=== PATIENT | male | born 1995 | race Caucasian/White ===

== ENCOUNTER 2018-01-26 05:41 | Emergency (ER) | payer SELFPAY ==
[2018-01-26] VITALS (24 sets, daily range): BP systolic 109–146; BP diastolic 57–100; PULSE 68–118; RESP 10–24; TEMP 37; O2SAT 93–100
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
--- NOTE | 2018-01-26 05:56 | DI.RPTCT_ITS ---
SYMPTOMS/DIAGNOSIS: TRAUMA, FALL DOWN FLIGHT OF STAIRS NONCONTRAST HEAD CT: No intracranial hemorrhage or skull fracture is seen. The ventricles are normal in size. There is opacification of several ethmoid sinuses. The mastoid air cells appear clear. IMPRESSION: No acute abnormality. CT OF THE CERVICAL SPINE: There is no evidence of fracture. The alignment appears normal. No hematoma is seen. There is a small bubble of air adjacent to the upper trachea which could represent a small diverticulum. IMPRESSION: No evidence of an acute fracture. FACIAL CT: There is a large soft tissue laceration on the right side of the lower lip. There is a fracture which is comminuted extending through the right anterior side of the mandible through the alveolar ridge with avulsion of the right lateral mandibular incisor and canine tooth. Right lateral maxillary incisor is scattered and displaced superiorly, anterior to the maxilla. Fracture through the anterior maxilla is seen in the vicinity through the alveolar ridge. There is no temporomandibular dislocation or evidence of orbital fracture. IMPRESSION: Fractures through the right side of the anterior mandible through the alveolar ridge as well as fractures through the right anterior maxilla with severe displacement of the right canine tooth superiorly.
--- NOTE | 2018-01-26 05:56 | DI.RPTCT_ITS ---
SYMPTOM/DIAGNOSIS: TRAUMA, FALL DOWN FLIGHT OF STAIRS CT CHEST, ABDOMEN AND PELVIS: Images were performed from the clavicle through the ischial tuberosities after IV and without oral contrast CHEST CT: The heart and great vessels appear intact. There is no evidence of pneumothorax or pulmonary contusion. No rib or thoracic spine fractures are seen. IMPRESSION: Negative chest CT ABDOMEN AND PELVIC CT: A metallic density is seen adjacent to the lower right posterior ribs. No rib, spine, or pelvic fracture is seen. The liver, spleen, pancreas, kidneys, adrenals and gallbladder are unremarkable. The exam is somewhat limited due to the lack of intra-abdominal fat and lack of oral contrast. There is a suggestion of haziness in the central mesentery at the level of the celiac axis and SMA. No contrast extravasation is visible. The findings could represent injury to a small vascular structure. There is a small amount of fluid in the lower pelvis. The bladder and prostate are unremarkable. The appendix is not well seen. IMPRESSION: Free fluid in the pelvis and within the mesentery. No active extravasation of contrast is seen. No focal bowel abnormality or solid organ injury is identified.
[2018-01-26] MEDS: Lactated Ringers 1,000 ML 200 ML IV (06:10)
--- NOTE | 2018-01-26 06:11 | DI.REPORT_ITS ---
SYMPTOM/DIAGNOSIS: TRAUMA/ FALL DOWN FLIGHT OF STAIRS RIGHT WRIST: There is gauze overlying the wrist. No fracture or dislocation is seen. There is no evidence of foreign body. IMPRESSION: Negative right wrist.
[2018-01-26] MEDS: Ondansetron 4 MG/2 ML VIAL IVP ×2 (06:15→08:59)
[2018-01-26] MEDS: MORPHine 10 MG/ML VIAL 2 MG IVP ×4 (06:15→09:00)
[2018-01-26 06:34] LABS: Abs Immature Grans 0.05 k/cumm (0.0-0.09); Absolute Basophil Count 0.05 k/cumm (0.0-0.2); Absolute Lymphocyte Count 4.44 k/cumm (1.2-3.4); Absolute Monocyte Count 1.02 k/cumm (0.11-0.7); Absolute Neutrophil Count 9.11 k/cumm (1.2-6.7); Basophils % 0.3; Eosinophils % 2.5; HCT 49.8 % (40.0-50.0); HGB 17.4 g/dL (13.5-17.5); Immature Grans % 0.3; Lymphocytes % 29.5; Mean Corp. HGB Concentration 34.9 g/dL (32.0-36.0); Mean Corpuscular Hemoglobin 30.2 pg (27.0-33.0); Mean Corpuscular Volume 86.3 fL (80-95); Mean Platelet Volume 9.8 fL (8.0-11.0); Monocytes % 6.8; Neutrophils % 60.6; Platelet Count 209 x1000/uL (130-400); RBC 5.77 m/cumm (4.50-6.00); RBC Distribution Width 12.7 % (11.8-14.1); White Blood Cell Count 15.04 k/cumm (4.4-10.8)
[2018-01-26 06:35] LABS: Absolute Eosinophil Count 0.38 k/cumm (0.0-0.7)
[2018-01-26 06:45] LABS: ALT 33 U/L (12-78); AST 46 U/L (15-37); Albumin 4.5 g/dL (3.4-5.0); Alkaline Phosphatase 79 U/L (46-116); Anion Gap 15.3 mmol/L (3-11); BUN 9 mg/dL (7-18); Bilirubin, Total 1.3 mg/dL (0.2-1.0); CO2 23.7 mmol/L (21.0-32.0); CREATININE 0.97 mg/dL (0.70-1.30); Calcium 8.7 mg/dL (8.5-10.1); Chloride 104 mmol/L (98-107); ETHANOL BLOOD 200.6 mg/dL (<3); Glucose 103 mg/dL (70-100); Potassium 3.4 mmol/L (3.5-5.1); Sodium 143 mmol/L (136-145); Total Protein 8.3 g/dL (6.4-8.2)
[2018-01-26] MEDS: CLINDAMYCIN 300 MG/50 ML BAG 100 MG IVPB (06:58)
[2018-01-26] MEDS: Normal Saline Flush 10 ML SYR IVP (06:58)
--- NOTE | 2018-01-26 07:46 | DI.VRAD_ITS ---
EXAM: CT Cervical Spine Without Intravenous Contrast CLINICAL HISTORY: 22 years old, male; Pain; Other: Facial trauma/pain; Face pain and jaw pain; Patient HX: Fell down flight of stairs TECHNIQUE: Axial computed tomography images of the cervical spine without intravenous contrast. Coronal and sagittal reformatted images were created and reviewed. COMPARISON: No relevant prior studies available. FINDINGS: Vertebrae: No acute cervical fracture is seen. There is straightening of the normal cervical lordosis. This can be seen in the presence of a cervical collar or may result from muscle spasm or positioning. Discs/spinal canal/neural foramina: There is no significant stenosis or foraminal narrowing through the cervical spine. Soft tissues: There is no significant prevertebral soft tissue swelling. Trachea: There is a small right posterior tracheal diverticulum, image 338 of series 14. Thyroid: Normal appearing thyroid gland. Lung apices: CT imaging through the chest obtained concurrently, to be dictated separately. IMPRESSION: No acute cervical fracture is seen. EXAM: CT Head Without Intravenous Contrast CLINICAL HISTORY: 22 years old, male; Pain; Other: Facial trauma/pain; Face pain and jaw pain; Patient HX: Fell down flight of stairs TECHNIQUE: Axial computed tomography images of the head/brain without intravenous contrast. Coronal and sagittal reformatted images were created and reviewed. COMPARISON: No relevant prior studies available. FINDINGS: Brain: No acute intracranial hemorrhage, mass-effect, midline shift, or extra-axial collection is seen. The brown white matter differentiation appears preserved. Ventricles: The ventricular system and basilar cisterns appear appropriate in size and configuration. Bones/joints: The bony calvarium appears intact. No depressed skull fracture is seen. Soft tissues: No gross scalp contusion is demonstrated. Sinuses: CT imaging through the facial bones obtained concurrently and dictated separately, below. Mastoid air cells: The mastoid air cells appear clear. Auditory system: The middle ear cavities appear clear. IMPRESSION: No acute intracranial hemorrhage or depressed skull fracture. EXAM: CT Maxillofacial Without Intravenous Contrast CLINICAL HISTORY: 22 years old, male; Pain; Other: Facial trauma/pain; Face pain and jaw pain; Patient HX: Fell down flight of stairs TECHNIQUE: Axial computed tomography images of the face without intravenous contrast. Coronal and sagittal reformatted images were created and reviewed. COMPARISON: No relevant prior studies available. FINDINGS: Bones/joints: There is an acute fracture through the anterior body of the right mandible with fracture extension through the mandibular alveolar ridge. There are fractures through the alveolar ridge and acute avulsion of the right lateral mandibular incisor and right mandibular canine tooth, which are both absent. The right lateral maxillary incisor is essentially shattered through its crown and has been driven superiorly into the right maxilla. The right maxillary canine tooth appears grossly intact but has been driven superiorly through the right maxilla and into the overlying soft tissues, as demonstrated by images 166-221 of series 10 and 41-52 of series 12. There are associated fractures through the right maxilla alveolar ridge. Direct inspection of the teeth is recommended to assess for additional broken teeth. There appears to be a small cavity in the lateral crown of the right maxillary 3rd molar. No additional facial fracture is seen. Soft tissues: There is soft tissue gas anterior to the right maxilla in keeping with lacerations. There is a large defect in the right lower lip. There are punctate radiodensities in this region, presumably representing bone fragments or radiodense foreign debris. Direct inspection is recommended.. Orbits: The globes and intraorbital structures appear grossly intact. Sinuses: There is patchy mucoperiosteal thickening throughout the paranasal sinuses but no air-fluid levels. Dental: See above with the bones. IMPRESSION: 1. Acute fracture through the anterior body of the right mandible extending through the alveolar ridge. 2. Acute traumatic avulsion of the right lateral mandibular incisor and right mandibular canine tooth, both of which appear absent. 3. Right lateral maxillary incisor shattered through its crown and driven superiorly into the right maxilla. Right canine tooth grossly intact but driven superiorly through the right maxilla and partially into the overlying soft tissues. Associated fractures through the right maxillary alveolar ridge. 4. Suggestion of a small dental cavity along the lateral crown of the right 3rd maxillary molar. Dictated and Authenticated by: Gerardo Zurita MD. Ordering:ALEJANDRO ROSALES MD
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
--- NOTE | 2018-01-26 08:07 | DI.VRAD_ITS ---
EXAM: XR Right Wrist Complete, 3 or More Views CLINICAL HISTORY: 22 years old, male; Signs and symptoms; Other: Trauma/fall down flight of stairs TECHNIQUE: Frontal, lateral and oblique views of the right wrist. COMPARISON: No relevant prior studies available. FINDINGS: Bones/joints: Three views of the right wrist reveal no acute fracture or dislocation. Soft tissues: There is relatively hyperdense material projecting over the space between the ulna and carpal bones on the PA view. Artifact created by contamination on the cassette is suspected; however, if there is concern for a radiopaque foreign body, repeat imaging would be recommended. IMPRESSION: 1. No acute fracture or dislocation seen at the right wrist. 2. Suspected artifact from cassette contamination. Please see description above if there is clinical concern for a foreign body. Dictated and Authenticated by: Gerardo Zurita MD. Ordering:ALEJANDRO ROSALES MD
--- NOTE | 2018-01-26 08:10 | ED.FU ---
Disposition Clinical Impression: Lip laceration, Mandible open fracture, Dental injury, Alcohol intoxication, Contusion of mesentery Disposition: [facility] Condition: Stable Medical Decision Making - Lab Data Laboratory Tests 01/26/18 01/26/18 06:10 06:10 WBC 15.04 H RBC 5.77 Hgb 17.4 Hct 49.8 MCV 86.3 MCH 30.2 MCHC 34.9 RDW 12.7 Plt Count 209 MPV 9.8 Immature Gran % 0.3 Neutrophils % 60.6 Lymphocytes % 29.5 Monocytes % 6.8 Eosinophils % 2.5 Basophils % 0.3 Absolute Neutrophils 9.11 H Absolute Lymphocytes 4.44 H Absolute Monocytes 1.02 H Absolute Eosinophils 0.38 Absolute Basophils 0.05 Sodium 143 Potassium 3.4 L Chloride 104 Carbon Dioxide 23.7 Anion Gap 15.3 H BUN 9 Creatinine 0.97 Estimated GFR/1.73 m2 >= 60.00 Glucose 103 H Calcium 8.7 Total Bilirubin 1.3 H AST 46 H ALT 33 Alkaline Phosphatase 79 Total Protein 8.3 H Albumin 4.5 Ethyl Alcohol 200.6 - Radiology Data Radiology results: report reviewed, image reviewed CT head: Negative CT cervical spine: Negative CT facial bones: 1. Acute fracture through the anterior body of the right mandible extending to the alveolar ridge. 2. Acute traumatic avulsion of the right lateral mandibular incisor and right mandibular canine tooth, both of which appear absent. 3. Right lateral maxillary incisor shadow through its crown and driven superiorly into the right maxilla. Right canine tooth grossly intact but driven separately to the right maxilla and partially into the overlying soft tissues. Associated fractures of the right maxillary alveolar ridge. Next line 4. Suggestion of a small dental cavity along the lateral count of the right third maxillary molar. CT chest: Negative CT abdomen and pelvis: 1. Small amount of fluid in the pelvis. Fluid also present in the central small bowel mesentery to the left of midline in between the pancreas and stomach. An acute mesenteric contusion suspected. No active extravasation of contrast identified, however close clinical follow-up recommended to exclude persistent bleeding. Underlying injury to the small mesenteric vascular structures suspected. 2. No acute vessel injury seen in the abdomen or pelvis. No free air. 3. No acute fracture seen among the bones of the abdomen and pelvis. Right wrist x-ray: 1. No acute fracture dislocation seen at the right wrist. 2. Suspect artifact from cassette contamination. If concern for radiopaque foreign body, repeat imaging recommended. - Medical Decision Making Please see Dr. Falk's note for initial presentation, exam and plan. Patient is a 22-year-old male who presented after fall down 13 stairs while intoxicated. Patient noted to have facial lacerations around the mouth with CT findings of fracture through the right mandible with avulsion of right lateral mandibular teeth driven superiorly into the right maxilla. CT abdomen noted small amount of fluid in the pelvis raising concern for an acute mesenteric contusion. Per Dr. Falk, pt had no abdominal pain, tenderness or abdominal skin findings. CT chest, CT head, and CT C-spine negative. Right wrist x-ray negative for acute fracture but noted a suspected artifact from cassette and recommended repeat imaging. Prior to my evaluation, his right wrist wound was already irrigated and dressed. Patient's alcohol level 200 and has been intoxicated since arrival. He otherwise has been awake and hemodynamically stable with intact airway. Per Dr. Falk, patient has refused c-collar since arrival and had held placed in the collar due to lack of patient cooperation. Plan per Dr. Falk was for transfer to [facility] for oral surgery/facial plastics repair. 0815 -- Spoke with [facility] transfer center - state they will call trauma but suggest if facial can evaluate as outpatient -I explained that he has facial lacerations, lip laceration, with avulsed teeth and mandible fracture and would need urgent transfer for consideration of OR exploration and washout and repair sooner than later. 0825 --discussed with trauma Dr. Valentin -accepts patient for transfer. Would like patient in c-collar. He was also notified of abdomen CT findings of small amount of fluid in the pelvis possibly consistent with an acute mesenteric contusion. Per Dr. Falk, patient had no abdominal findings or tenderness. On my reassessment of abdomen, patient has mild diffuse tenderness but he remains hemodynamically stable. Dr. Valentin was informed of his diffuse mild abdominal tenderness and will evaluate patient once transferred to the ER. We will continue IV fluids. C-collar placed and patient is tolerating this. Dr. Valentin was also notified of the questionable foreign body on the right wrist x-ray but may have been due to cassette contamination and that his wound was dressed prior to my evaluation and the x-ray recommended repeat imaging. He states they will evaluate this upon patient's arrival. Prior to transfer, pt still c/o abdominal pain and dose of morphine given. No acute change in abdominal exam. Vitals stable. Advised pt and family that mesentery contusion could be causing his pain and that no extravasation of contrast, solid organ or bowel injury noted on CT. Care Signed Out By:: Dr. Falk - Vital Signs Recent Vitals - 8H: Vital Signs - 8 hr 01/26/18 01/26/18 01/26/18 05:47 06:57 06:59 Temperature 98.6 F Pulse 97 H 88 Respiratory 17 18 Rate Blood Pressure 146/100 123/64 Pulse Oximetry 97 100 99 01/26/18 01/26/18 01/26/18 07:00 07:01 07:11 Temperature Pulse 85 Respiratory 12 14 18 Rate Blood Pressure 118/83 Pulse Oximetry 99 99 99 01/26/18 01/26/18 01/26/18 07:20 07:46 07:47 Temperature Pulse 68 Respiratory 20 10 L 10 L Rate Blood Pressure 109/57 Pulse Oximetry 99 98 97 01/26/18 01/26/18 07:50 08:00 Temperature Pulse Respiratory 15 19 Rate Blood Pressure Pulse Oximetry 97 99 - Continuation of Care Continuation of Care Plan: Case endorsed to follow-up on imaging and for plan to transfer to [facility] to trauma.
[2018-01-26] MEDS: Omnipaque 350 MG/ML 50 ML BTL 100 ML IV (08:40)
--- NOTE | 2018-01-26 09:11 | NUR.NOTE ---
Nursing Note: 0855--c/o umbilical area abd pain--Dr Zamudio notified and checked pt---Zofran and mMorphine given
[2018-01-26] MEDS: fentaNYL 100 MCG/2 ML VIAL (09:21)
[2018-01-26 09:26] LABS: Bilirubin Negative (Negative); Blood Negative (Negative); Clarity Clear; Glucose Negative (Negative); Ketones 15 mg/dL (Negative); Leukocyte Esterase Negative (Negative); Nitrite Negative (Negative); Specific Gravity <= 1.005 (1.005-1.025); Urobilinogen 0.2 EU/dL (Up TO 0.2); pH 5.5 (5-8)
[2018-01-26 09:41] LABS: *AMPHETAMINES SCREEN URINE Negative (Negative); *BARBITURATES SCREEN URINE Negative (Negative); *BENZODIAZEPINES SCREEN URINE Negative (Negative); Cannabinoids THC POSITIVE (Negative); Cocaine Screen,Urine Negative (Negative); METHADONE URINE SCREEN Negative (Negative); OPIATES URINE SCREEN POSITIVE (Negative)
[2018-01-26 09:46] LABS: Tricyclic Antidepressants Negative (Negative)
== END 2018-01-26 09:21 | disposition short-term general hospital (02) ==
LOC: ER 03-25 09:57
PROVIDERS: Emergency Medicine; Emergency Provider Physician Assistant; PCP General Practice
DX: S02.601B Fracture of unspecified part of body of right mandible, initial encounter for open fracture (principal); S02.671B Fracture of alveolus of right mandible, initial encounter for open fracture; S02.42XB Fracture of alveolus of maxilla, initial encounter for open fracture; S03.2XXA Dislocation of tooth, initial encounter; S01.511A Laceration without foreign body of lip, initial encounter; S36.892A Contusion of other intra-abdominal organs, initial encounter; S61.511A Laceration without foreign body of right wrist, initial encounter; S01.512A Laceration without foreign body of oral cavity, initial encounter; D72.829 Elevated white blood cell count, unspecified; F10.129 Alcohol abuse with intoxication, unspecified; W10.8XXA Fall (on) (from) other stairs and steps, initial encounter; Y90.7 Blood alcohol level of 200-239 mg/100 ml; R40.2412 Glasgow coma scale score 13-15, at arrival to emergency department
CPT/HCPCS: 36415; 74177; 80053; 80307; 90471; 96361; 96365; 96375; 96376; 99285; 70450; 70486; 71260; 72125; 73110; 80320; 81003; 85025; J2270; J2405; J3010; L0172; Q9967

== ENCOUNTER 2020-01-04 15:01 | Emergency (ER) | payer MEDICAID, SELFPAY ==
[2020-01-04 15:04] VITALS: BP 124/67; PULSE 94; RESP 15; TEMP 37.2; O2SAT 97
--- NOTE | 2020-01-04 15:23 | W.ED.GENAD ---
Discharge Plan Disposition Patient Disposition: HOME Condition: Stable Discharge Details Chief Complaint: Orthopedic Clinical Impression: Crush injury, toe Primary Care Provider: Chris Chiu ED Provider: Chris Valentin Home Meds and New Rx's Prescriptions: No Action No Known Home Meds RF: 0 Discharge Instructions Instructions: Crush Injury (ED) Additional Instructions: Keep the area clean and dry, change antibiotic dressing daily. I do recommend to continue keeping the toenail taped down. You will likely lose the toenail within the next 2 weeks. Rest, elevate, cool compresses every 2 hours for 20 minutes. [id number] Tylenol and/or Motrin as directed for discomfort. Please watch for new or worsening symptoms and return to the ER for any concerns. Discharge Data Discharge Date/Time-TO BE ENTERED AT DEPARTURE: 01/04/20 16:20 Medical Decision Making Presents with a crush injury to his left great toe, no other injury. Tetanus status is up-to-date. Will perform digital block that I can better evaluate the injury, obtain x-ray to rule out bony abnormality, and the area will need to be thoroughly cleaned and flushed. Perform digital block using 6 cc of 1% lidocaine, patient tolerated well. X-ray was obtained and although there is no obvious fracture, there is radiopaque density, likely foreign body. Clinically when his toenail was lifted there was a large amount of dirt and mud between his nailbed and nail. This was thoroughly cleaned and irrigated. No obvious foreign body remains. There is no true injury to the nailbed. Given the nail it at least one third adhered to the nailbed, I do not believe removing the entire nail is necessary. After the area was thoroughly cleaned and irrigated, and antibiotic dressing was applied and the toenail was taped downward to the nailbed. Patient and I discussed treatment plan. He will rest, elevate, cool compresses as tolerated. [id number] Tylenol and/or Motrin. We initially discussed a postop shoe and crutches, he initially declined but then decided that he would take the postop shoe as putting his foot into a shoe was painful. Patient has no additional questions or concerns and is comfortable discharge. Medical Records Medical records reviewed: Yes I reviewed the patient's medical records. Imaging Data Radiologic Study: Attestation: I personally reviewed and interpreted this imaging study as follows: Imaging: X-Ray My impression: No obvious fracture noted. Appears to have foreign bodies present. This was later confirmed with radiology. Clinically this makes perfect sense. HPI General Mode of arrival: ambulatory. Date/Time Provider Initiated Documentation: 01/04/20 15:04. Limitations to Documentation: no limitations. Information obtained by: patient. HPI Narrative: 24-year-old gentleman presents stating that he accidentally dropped a large rock roughly 80 pounds onto his left great toe roughly 1 hour ago while at work. He was wearing boots but they were not steel toed. He reports moderate pain at rest, worse with ambulation. Denies any numbness, tingling, weakness or other injury. He believes that the nail is broken and partially unattached from the nail bed. He denies any laceration but reports that distally there was a piece of loose skin but he is pulled off. Tetanus status is up-to-date Related Data Home Medications Medication Instructions Recorded Confirmed Unknown [No Known Home Meds] 01/04/20 01/04/20 Allergies Allergy/AdvReac Type Severity Reaction Status Date / Time No Known Allergies Allergy Unverified 01/04/20 15:09 General Stated Complaint: Orthopedic TANNER: 4 Review of Systems Constitutional Constitutional: Denies weakness Musculoskeletal Musculoskeletal: Reports arthralgias, Denies numbness and Denies tingling Integumentary/Breasts Skin/Breast: Denies rash Neurologic Neurologic: Denies numbness, Denies tingling and Denies weakness [facility] Social History Smoking/Tobacco Use Status: Current every day Tobacco Type: smokeless tobacco Alcohol Intake: current Alcohol Intake frequency: a few times a week Drug use: Current Sobriety Do you feel safe at home: Yes Do you feel safe in your relationship?: Yes Exam Const General: cooperative, healthy appearing, comfortable and no acute distress Orientation: alert and awake [facility] Head: normal to inspection, normocephalic and atraumatic Mouth: moist mucous membranes Eyes Conjunctivae: conjunctivae normal Neck Neck: normal visual inspection, trachea midline and supple Resp Effort & Inspection: normal respiratory effort and able to speak in complete sentences Cardio Rate: regular rate Rhythm: regular rhythm Skin General skin exam: no rashes or lesions noted Neuro General: patient alert, patient awake, moves all extremities and no focal motor deficits Sensory Exam: no sensory deficits noted Extrem Other: Left great toe with diffuse mild discomfort. The nailbed is partially avulsed from the nail bed along the medial and proximal aspect however is still attached completely along the lateral proximal and the entire lateral nail bed. Neuro, vascular, tendon intact. Distally there is a small area where he pulled away and layer of skin however this is extremely superficial. There is no obvious deformity or laceration. The area is contaminated with mud. Psych Appearance: grossly normal Mental Status: mental status grossly normal Course Vital Signs Vital signs: Vital Signs Temperature 37.2 C 01/04/20 15:04 Pulse 94 H 01/04/20 15:04 Respiratory Rate 15 01/04/20 15:04 Blood Pressure 124/67 01/04/20 15:04 Pulse Oximetry 97 01/04/20 15:04 Temperature 37.2 C 01/04/20 15:04 Temperature Source Temporal Artery Scan 01/04/20 15:04 Pulse 94 H 01/04/20 15:04 Respiratory Rate 15 01/04/20 15:04 Respiratory Effort Non-Labored 01/04/20 15:08 Blood Pressure 124/67 01/04/20 15:04 Blood Pressure Position Sitting 01/04/20 15:04 Pulse Oximetry 97 01/04/20 15:04 Oxygen Delivery Method Room Air 01/04/20 15:04 Oxygen Flow Rate 0 01/04/20 15:04 Pain Level 6 01/04/20 15:04
--- NOTE | 2020-01-04 15:40 | DI.RAD_ITS ---
EXAM: XR FOOT LT COMPLETE CLINICAL HISTORY: Rock fell onto foot. TECHNIQUE: 2D digital imaging was performed. COMPARISON: No exams were available for comparison FINDINGS: BONES: No acute fracture is present. No bony destructive lesion is seen. JOINTS: No dislocation present. SOFT TISSUE: Radiopaque densities are seen in the soft tissues of the great toe which may be associat ed with the nail. Radiopaque foreign bodies cannot be excluded. Please correlate clinically. IMPRESSION: No acute fracture or dislocation. Please see the above discussion for complete details. DATA REPOSITORY: RADIATION DOSE DELIVERED:
== END 2020-01-04 16:20 | disposition home or self-care (01) ==
PROVIDERS: Emergency Provider Physician Assistant; PCP General Practice
DX: S97.112A Crushing injury of left great toe, initial encounter (principal); S90.412A Abrasion, left great toe, initial encounter; W20.8XXA Other cause of strike by thrown, projected or falling object, initial encounter; Y99.0 Civilian activity done for income or pay
CPT/HCPCS: 64450; 99283; 73630

== ENCOUNTER 2021-01-10 07:33 | Outpatient (CLI) | payer OTHER, SELFPAY ==
--- NOTE | 2021-01-10 10:00 | DI.RAD_ITS ---
Exam(s) XR HAND RT COMPLETE EXAM: XR HAND RT COMPLETE CLINICAL HISTORY: follow up. TECHNIQUE: 2D digital imaging was performed. COMPARISON: No priors for comparison FINDINGS: BONES: There are fractures involving the right 4th and 5th metacarpals. There is volar angulation of both fractures. Callus formation has developed about both fractures, however the fracture lines are still well visualized. No bony destructive lesion is seen. JOINTS: No dislocation present. SOFT TISSUE: Normal. IMPRESSION: Healing angulated fracture of the right 4th and 5th metacarpals. If priors become available, an adde ndum will be issued. DATA REPOSITORY: RADIATION DOSE DELIVERED:
== END 2021-01-10 07:34 | disposition home or self-care (01) ==
LOC: DIORS 01-11 07:33
PROVIDERS: PCP General Practice; Visit Provider Physician Assistant Surgical
DX: S62.344D Nondisplaced fracture of base of fourth metacarpal bone, right hand, subsequent encounter for fracture with routine healing (principal); S62.346D Nondisplaced fracture of base of fifth metacarpal bone, right hand, subsequent encounter for fracture with routine healing
CPT/HCPCS: 73130

== ENCOUNTER 2021-03-07 02:02 | Outpatient (CLI) | payer OTHER, SELFPAY ==
[2021-03-07 10:38] LABS: Source Nasal/Nares
[2021-03-07 12:32] LABS: COVID-19 PCR Negative (Negative)
== END 2021-03-07 02:03 | disposition home or self-care (01) ==
LOC: LBO 02:03
PROVIDERS: PCP General Practice; Visit Provider Student in an Organized Health Care Education/Training Program
DX: Z20.822 Contact with and (suspected) exposure to COVID-19 (principal); Z01.818 Encounter for other preprocedural examination
CPT/HCPCS: 87635

== ENCOUNTER 2021-03-08 02:08 | Outpatient (CLI) | payer OTHER, SELFPAY ==
--- NOTE | 2021-03-08 06:30 | DI.RAD_ITS ---
Exam(s) XR HAND RT COMPLETE EXAM: XR HAND RT COMPLETE CLINICAL HISTORY: f/u fracture of R 5th and 4th MC frx,S62.306A,S62.304A. TECHNIQUE: 2D digital imaging was performed. COMPARISON: CR XR HAND RT COMPLETE from 01/10/2021 FINDINGS: Three views of the right hand reveal significant healing at the fracture sites in the 4th and 5th met acarpals, when compared to the 01/10/2021 images. Fracture lines are still faintly visible. There i s an element of volar angulation at the healed 5th metacarpal site. No additional new fractures. No radiopaque foreign body. No osseous lesions. Bone density is normal. IMPRESSION: DATA REPOSITORY: RADIATION DOSE DELIVERED:
== END 2021-03-08 02:28 ==
PROVIDERS: PCP General Practice; Visit Provider Student in an Organized Health Care Education/Training Program
DX: S62.304D Unspecified fracture of fourth metacarpal bone, right hand, subsequent encounter for fracture with routine healing (principal); S62.306D Unspecified fracture of fifth metacarpal bone, right hand, subsequent encounter for fracture with routine healing; X58.XXXD Exposure to other specified factors, subsequent encounter
CPT/HCPCS: 73130

== ENCOUNTER 2021-03-08 08:02 | Day surgery (SDC) | payer OTHER, SELFPAY ==
[2021-03-08] VITALS (8 sets, daily range): BP systolic 85–104; BP diastolic 35–61; PULSE 51–71; RESP 11–16; TEMP 36.5–36.9; O2SAT 94–100; BMI 26.5
[2021-03-08] MEDS: Lactated Ringers 1,000 ML 80 ML IV (09:05)
--- NOTE | 2021-03-08 09:36 | W.ANESPRE ---
General Info Date of Service Date Performed: 03/08/21 Height: 5 ft 10 in Weight: 84 kg Body Mass Index (BMI): 26.5 Surgical Procedure: Operation Date: 03/08/21 11:10 Proposed Procedures Side Surgeon p Open reduction of 5th metacarpal fx malunion,poss orif of 4th metacarpal fx malunion Conrad Cardenas MD Meds Allergies and Home Medications Allergies Allergy/AdvReac Type Severity Reaction Status Date / Time No Known Allergies Allergy Verified 03/08/21 08:37 Home Medication Medication Instructions Recorded acetaminophen 500 mg tablet 500 mg PO TID PRN tab 01/10/21 divalproex 500 mg tablet,delayed 500 mg PO DAILY tab 01/10/21 release hydrocortisone 1 % topical cream 1 applic TOPICAL DAILY PRN g 01/10/21 meloxicam 15 mg tablet 15 mg PO DAILY 01/10/21 mirtazapine 30 mg tablet 30 mg PO DAILY 01/10/21 prazosin 1 mg capsule 1 mg PO QHS 01/10/21 sennosides 8.6 mg capsule 8.6 mg PO DAILY 01/10/21 sertraline 100 mg tablet 100 mg PO DAILY 01/10/21 buprenorphine HCl 4 mg SUBLINGUAL DAILY 03/03/21 valproic acid 250 mg PO DAILY 03/03/21 Current Visit Medications: Current Medications Generic Name Dose Route Start Last Admin Trade Name Drewq PRN Reason Stop Dose Admin Ringer's Solution 1,000 mls @ 80 mls/hr 03/08/21 06:00 03/08/21 09:05 IV 04/06/21 23:59 80 mls/hr INFUSION JADEN Administration Cefazolin Sodium 2,000 mg/ 100 mls @ 200 mls/hr 03/08/21 06:00 Sodium Chloride IV 03/08/21 23:59 PREOP JADEN IV Miscellaneous Supplies 1 each 03/08/21 06:00 Iv Access IV 04/06/21 23:59 DIRECTED JADEN Sodium Chloride 0 ml 03/08/21 06:00 Normal Saline Flush 10 Ml Syr IV 04/06/21 23:59 PRN PRN Sodium Chloride 0 ml 03/08/21 06:00 Normal Saline 10 Ml Vial IJ 04/06/21 23:59 DIRECTED PRN Sterile Water 0 ml 03/08/21 06:00 Water,Injection,Sterile 10 Ml Vial IJ 04/06/21 23:59 DIRECTED PRN PFSH Active Problems Active Problems: Problem Status Onset Code Fracture of fourth metacarpal bone of right hand S62.304A Fracture of fifth metacarpal bone of right hand S62.306A Medical History Medical History (Updated 03/08/21 @ 09:54 by Conrad Cardenas MD) Adjustment disorder Bipolar II disorder Chronic lower back pain Constipation Major depressive disorder Opiate abuse, episodic PTSD (post-traumatic stress disorder) Tobacco Smoking/Tobacco Use Status: Never Alcohol Alcohol Intake: former Substance Use Substance use: Current Sobriety Substance use type: does not use Vital Signs and Lab Results Vital Signs Most Recent Vital Signs in EMR: Most Recent Vital Signs Temp Pulse Resp BP Pulse Ox 36.5 C 51 L 16 103/61 99 03/08/21 08:42 03/08/21 08:42 03/08/21 08:42 03/08/21 08:42 03/08/21 08:42 Lab Results Blood Type / Crossmatch: No Data to Display Complete Blood Count: No Data to Display Complete Metabolic Panel: No Data to Display Liver Function Panel: No Data to Display Coagulation Panel: No Data to Display Cardiac Panel: No Data to Display Arterial Blood Gas: No Data to Display Venous Blood Gas: No Data to Display Pancreas Panel: No Data to Display Thyroid Panel: No Data to Display Infectious Disease: Coronavirus (COVID-19)(PCR) Negative (Negative) 03/07/21 08:44 03/07/21 Coronavirus 2019 Source Nasal/Nares 03/07/21 08:44 03/07/21 Blood Cultures: No Data to Display Toxicology Panel: No Data to Display Anesthesia Assessment and Plan Anesthesia History Personal History: No History of Anesthesia Complications Family History: No Family History of Anesthesia Complications Exercise Tolerance Exercise Tolerance: Metabolic Equivalents>4 Pertinent Negatives Pertinent Negatives: No Symptoms of GERD (Occ s/s with food only, nonetoday) Cardiac & Pulmonary Exam Cardiac Exam: Normal S1/S2 Heart Sounds Pulmonary Exam: Clear Bilateral Breath Sounds Airway Exam Known Difficult Airway: No Mallampati Class: 1 Mouth Opening: Narrow (< 3cm) Thyromental Distance: Greater than 3 cm Neck Range of Motion: Full ROM Neck Circumference: Normal Teeth Condition: Normal Dentition ASA Classification ASA Score: ASA 2 Emergency Case?: No NPO Status NPO Status: NPO Clears >2 hours, Solids >8 hours Anesthesia Plan Resuscitation Status: Full Code Anesthesia Technique: General Anesthesia Airway Planned: LMA Monitors Used: Standard Monitors
--- NOTE | 2021-03-08 09:48 | HPE_ITS ---
Date of service: 03/08/21 Time of Service: 09:48 Assessment and Plan Assessment and plan (1) Fracture of fifth metacarpal bone of right hand: Status: Acute Assessment and plan: Leonid is a 25-year-old who suffered a fracture of his fourth and fifth metacarpals. Unfortunately, the fifth metacarpal is healed in a significantly flexed and slightly rotated position. The malrotation continues to bother him in addition to the prominence of the fifth metacarpal and the palmar prominence of the fifth metacarpal head. I did discussion with Leonid about treatment options. Unfortunately, malunion can only be treated with corrective osteotomy and fixation. I do not think there is any fracture plane still available although we will try to use that fracture plane. The plan will be for an osteotomy of the fifth metacarpal with improvement of the flexion as well as the rotation. This would be held with plates and screws. I discussed the risk of the procedure to include bleeding, infection, pain, stiffness, damage to nerves and vessels, damage to muscle and tendons, continued stiffness, under or overcorrection of the rotation, hardware prominence, hardware failure, need for repeat procedures, malunion, nonunion. Despite these risk, he elects to proceed. Qualifiers: Encounter type: subsequent encounter Fracture type: closed Metacarpal location: neck Fracture alignment: displaced Fracture healing: with malunion Qualified Code(s): S62.336P - Displaced fracture of neck of fifth metacarpal bone, right hand, subsequent encounter for fracture with malunion History of Present Illness History of Present Illness Chief Complaint: Right 5th Metacarpal Malunion Consults Consult date: 03/08/21 Narrative: Leonid is a 25-year-old who suffered a displaced fracture of his right fifth metacarpal. Unfortunately, this healed with a notable flexion deformity with malrotation. He was seen in a delayed fashion in the office where he was diagnosed with this malunion of the fifth metacarpal. Since that offices he continues have discomfort about the right ulnar aspect of the hand. When he goes to make a fist quickly the small finger overlaps the dorsal surface of the ring finger. He denies any numbness or tingling but does report sensitivity if he hits the right hand on anything. He does have a prominence to the right fifth metacarpal. He has had no sick contacts. [facility] He has been tested for COVID-19 and is negative. Review of Systems All systems reviewed & are unremarkable except as noted in HPI and below [facility] Medical History Adjustment disorder Bipolar II disorder Chronic lower back pain Constipation Major depressive disorder Opiate abuse, episodic PTSD (post-traumatic stress disorder) Social History Smoking/Tobacco Use Status: Never Smoking risk assessment performed?: Yes Alcohol Intake: former Drug use: Current Sobriety Substance use type: does not use Current gender identity: male Meds Allergies and Home Medications Allergies Allergy/AdvReac Type Severity Reaction Status Date / Time No Known Allergies Allergy Verified 03/08/21 08:37 Home Medications Medication Instructions Recorded Confirmed Type acetaminophen 500 mg tablet 500 mg PO TID PRN tab 01/10/21 03/03/21 History divalproex 500 mg tablet,delayed 500 mg PO DAILY tab 01/10/21 03/08/21 History release hydrocortisone 1 % topical cream 1 applic TOPICAL DAILY PRN g 01/10/21 03/03/21 History meloxicam 15 mg tablet 15 mg PO DAILY 01/10/21 03/03/21 History mirtazapine 30 mg tablet 30 mg PO DAILY 01/10/21 03/08/21 History prazosin 1 mg capsule 1 mg PO QHS 01/10/21 03/08/21 History sennosides 8.6 mg capsule 8.6 mg PO DAILY 01/10/21 03/08/21 History sertraline 100 mg tablet 100 mg PO DAILY 01/10/21 03/08/21 History buprenorphine HCl 4 mg SUBLINGUAL DAILY 03/03/21 03/08/21 History valproic acid 250 mg PO DAILY 03/03/21 03/08/21 History Exam Narrative Exam Narrative: Sitting up in the hospital stretcher. No acute distress. Alert oriented x3. Resp Auscultation: clear to auscultation bilaterally Cardio Rate: regular rate Rhythm: regular rhythm Extrem Other: Evaluation of the right hand shows multiple old lacerations over the dorsum of the right hand. There is an obvious prominence to the distal aspect of the fifth metacarpal. The metacarpal head of the fifth metacarpal is quite volar. When he goes to make a fist the distal aspect of the small finger overlaps the middle phalanx of the ring finger. I am able to correct out of this position but it does default to that position. He has difficulty making a complete fist with pain in the palm. Results Imaging Imaging Studies: X-ray of the right hand performed today demonstrates a malunion of the fifth metacarpal with flexion of about 50 degrees and some volar translation. The fourth metacarpal has healed with about 15 to 20 degrees of volar angulation. Last Vital Signs Temp 36.5 C 03/08/21 08:42 Pulse 51 L 03/08/21 08:42 Resp 16 03/08/21 08:42 BP 103/61 03/08/21 08:42 Pulse Ox 99 03/08/21 08:42
--- NOTE | 2021-03-08 10:00 | DI.RAD_ITS ---
Exam(s) XR HAND RT LIMITED EXAM: XR HAND RT LIMITED CLINICAL HISTORY: FRACTURE RIGHT 4TH AND 5TH METACARPALS. TECHNIQUE: Fluoroscopy was provided during orthopedic procedure on the 5th metacarpal. CONTRAST MATERIAL: None COMPARISON: CR XR HAND RT COMPLETE from 03/08/2021 FINDINGS: Intraoperative images reveal orthopedic correction of the angulation at the healed 5th metacarpal fra cture site with performance of an osteotomy and placement of dorsal fixation plate across the 5th met acarpal osteotomy site secured by multiple vertical screws. IMPRESSION: As above. Total fluoroscopy time 40 seconds. Cumulative dose 0.2252mGy RADIATION DOSE DELIVERED: justin Corey= mGy
--- NOTE | 2021-03-08 10:07 | PDOC.DSDIS_ITS ---
Documented by User: Kaylie Malik 03/08/21 12:34 Discharge Plan Disposition Patient Disposition: HOME Condition: Good Discharge Details Reason For Visit: Malunion of Right fifth metacarpal fracture Attending Provider: Conrad Cardenas Primary Care Provider: Chris Chiu Home Meds and New Rx's Prescriptions: New acetaminophen 500 mg tablet 1,000 mg PO Q8H PRN (Reason: pain) Qty: 90 RF: 3 ibuprofen 600 mg tablet 600 mg PO TID PRN (Reason: pain) Qty: 90 RF: 3 gabapentin 300 mg capsule 300 mg PO QHS Qty: 14 RF: 0 oxycodone 10 mg tablet 10 mg PO Q4H PRNQty: 30 RF: 0 Continued divalproex 500 mg tablet,delayed release (DR/EC) 500 mg PO DAILY RF: 0 hydrocortisone [Cortisone (hydrocortisone)] 1 % cream 1 applic topical DAILY PRNRF: 0 mirtazapine 30 mg tablet 30 mg PO DAILY RF: 0 sertraline 100 mg tablet 100 mg PO DAILY RF: 0 prazosin 1 mg capsule 1 mg PO QHS RF: 0 senna 8.6 mg capsule 8.6 mg PO DAILY RF: 0 valproic acid 250 mg Capsule 250 mg PO DAILY RF: 0 buprenorphine HCl 2 mg Tablet, Sublingual 4 mg SUBLINGUAL DAILY RF: 0 Discontinued acetaminophen [Acetaminophen Pain Relief] 500 mg tablet 500 mg PO TID PRNRF: 0 meloxicam 15 mg tablet 15 mg PO DAILY RF: 0 Discharge Instructions Additional Instructions: Fifth Metacarpal Fracture Fixation Discharge Instructions Activity: You should keep the hand/wrist elevated as much as possible for the first few days. This is imperative. You may also apply ice. You may use the other fingers as tolerated but avoid trying to do too much too soon. You may perform light activities with the splint in place. Dressing/Cast: Your splint should stay in place at all times. Do NOT get it wet. You may loosen the RITIKA wrap if you feel it is too tight and then re-wrap more loosely. Medications: - You should take Tylenol and Ibuprofen for baseline pain control. - You have been prescribed a stronger pain medication, Oxycodone, for breakthrough pain. - You may apply ice over the wrist/hand, just double bag so it doesn't get wet. Follow-up: 14 days Referrals: Conrad Cardenas MD [ [facility] STAFF PHYSICIAN] - Equipment/Supplies: Splint and Sling Activity:: Elevate Remove Dressings/Wound Care:: Do Not Remove Shower/Bathe:: Cover Diet:: As Tolerated Discharge Orders Discharge Orders: Discharge Order (Routine); Ordered 03/08/21 Ordered By: Kaylie Malik DS: Diagnosis Discharge Diagnosis (1) Fracture of fifth metacarpal bone of right hand: Status: Acute Documented by User: Conrad Cardenas MD 03/08/21 13:07 Discharge Plan Disposition Patient Disposition: HOME Condition: Good Discharge Details Reason For Visit: Malunion of Right fifth metacarpal fracture Attending Provider: Conrad Cardenas Primary Care Provider: Chris Chiu Home Meds and New Rx's Prescriptions: New acetaminophen 500 mg tablet 1,000 mg PO Q8H PRN (Reason: pain) Qty: 90 RF: 3 ibuprofen 600 mg tablet 600 mg PO TID PRN (Reason: pain) Qty: 90 RF: 3 gabapentin 300 mg capsule 300 mg PO QHS Qty: 14 RF: 0 oxycodone 10 mg tablet 10 mg PO Q4H PRNQty: 30 RF: 0 Continued divalproex 500 mg tablet,delayed release (DR/EC) 500 mg PO DAILY RF: 0 hydrocortisone [Cortisone (hydrocortisone)] 1 % cream 1 applic topical DAILY PRNRF: 0 mirtazapine 30 mg tablet 30 mg PO DAILY RF: 0 sertraline 100 mg tablet 100 mg PO DAILY RF: 0 prazosin 1 mg capsule 1 mg PO QHS RF: 0 senna 8.6 mg capsule 8.6 mg PO DAILY RF: 0 valproic acid 250 mg Capsule 250 mg PO DAILY RF: 0 buprenorphine HCl 2 mg Tablet, Sublingual 4 mg SUBLINGUAL DAILY RF: 0 Discontinued acetaminophen [Acetaminophen Pain Relief] 500 mg tablet 500 mg PO TID PRNRF: 0 meloxicam 15 mg tablet 15 mg PO DAILY RF: 0 Discharge Instructions Additional Instructions: Fifth Metacarpal Fracture Fixation Discharge Instructions Activity: You should keep the hand/wrist elevated as much as possible for the first few days. This is imperative. You may also apply ice. You may use the other fingers as tolerated but avoid trying to do too much too soon. You may perform light activities with the splint in place. Dressing/Cast: Your splint should stay in place at all times. Do NOT get it wet. You may loosen the RITIKA wrap if you feel it is too tight and then re-wrap more loosely. Medications: - You should take Tylenol and Ibuprofen for baseline pain control. - You have been prescribed a stronger pain medication, Oxycodone, for breakthrough pain. - You may apply ice over the wrist/hand, just double bag so it doesn't get wet. Follow-up: 14 days Referrals: Conrad Cardenas MD [ [facility] STAFF PHYSICIAN] - Equipment/Supplies: Splint and Sling Activity:: Elevate Remove Dressings/Wound Care:: Do Not Remove Shower/Bathe:: Cover Diet:: As Tolerated Discharge Orders Discharge Orders: Discharge Order (Routine); Ordered 03/08/21 Ordered By: Kaylie Malik
[2021-03-08] MEDS: ceFAZolin 2,000 MG in Normal Saline 100 ML 200 MG IV (10:42)
[2021-03-08] MEDS: Sodium Bicarbonate 50 MEQ/50 ML VIAL (11:41)
[2021-03-08] MEDS: Lidocaine 1% Multi-Dose 50 ML VIAL (11:41)
--- NOTE | 2021-03-08 13:25 | W.ANESPOSTOP ---
Postoperative Evaluation Date, Time and Location Date Performed: 03/08/21 Time Performed: 13:25 Patient Location: Day Surgery Unit Vital Signs Most Recent Imported Vital Signs: Most Recent Vital Signs Temp Pulse Resp BP Pulse Ox 36.6 C 70 14 97/51 L 98 03/08/21 13:17 03/08/21 13:17 03/08/21 13:17 03/08/21 13:17 03/08/21 13:17 Pain Score Most Recent Pain Score: Most Recent Pain Score Pain Level 2 03/08/21 13:17 Assessment Mental Status: Awake (Alert & Oriented to Patient Baseline) Airway and Respiratory Function: Patent airway with normal (patient baseline) respiratory exam Cardiovascular Function: Hemodynamically Stable Hydration Status: Adequately Hydrated Nausea & Vomiting: No Nausea or Vomiting Pain: Pt. Denies Any Pain Peripheral Nerve Block: Patient did not receive a nerve block
--- NOTE | 2021-03-08 17:00 | W.PM.OP ---
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 Unfortunately, his treatment was ultimately delayed and he developed a malunion of the fifth metacarpal with significant flexion as well as some mild rotation deformity. This is bothersome to him when he try to make a fist and was unable to use it fully. Therefore I offered corrective osteotomy with fixation. I reviewed the risk of the procedure to include bleeding, infection, pain, stiffness, damage to nerves and vessels, damage to muscles and tendons, incomplete correction, hardware prominence, hardware failure, malunion, nonunion, need for repeat procedures. Despite these risk, he elects to proceed. Findings: There is a deformity of the right fifth metacarpal neck with palmar translation as well as significant flexion. This fracture was fully healed and while the fracture plane could be identified I was unable to break it free. Therefore, I performed an osteotomy through which I reduce the fracture ensuring appropriate positioning of the distal fragment and that there was no overlap of the fingers and secured this with a 1.5 mm variable angle metacarpal neck plate from [employer]. Procedure Description: Leonid was greeted in the preoperative holding area. His identity was confirmed the correct site was identified and marked. The consent was reviewed with the patient and signed. The history and physical was updated. He was taken back to the operating room and placed in the supine position on the hospital bed. The right arm was placed onto a hand table. A general anesthetic was administered. The right arm was prepped with ChloraPrep and draped in a standard fashion with a nonsterile tourniquet high up on the right arm. Prophylactic antibiotics in the form of cefazolin were administered. A timeout was performed for safe surgery. A longitudinal incision was made over the dorsal ulnar aspect of the right hand slightly curved as it approaches the fifth MCP joint. This dissection was carried down sharply to the skin. Blunt dissection was carried down to the fascia of the dorsal ulnar hand. Soft tissue retraction was performed and there is no crossing branches of the superficial ulnar nerve. This was now incised down to bone. Using Bovie electrocautery the fascia was incised sharply down to bone and a weeks elevator was utilized to elevate the periosteum and the soft tissues from the dorsal aspect of the fifth metacarpal. We had started the case without a tourniquet. However, there is significant ooze coming from the periosteum and the surrounding tissues and therefore I decided to elevate the tourniquet at this time after exsanguinating the arm with an Esmarch. The tourniquet was inflated to 275 mmHg stay for 55 minutes until the splint was on. The previous fracture was identified. There was notable palmar translation of the fracture with a step-off dorsally. The very dorsal aspect of the fracture could be identified with an osteotome. However, is unable to recreate the remainder of the deformity. Therefore, I proceeded with an osteotomy. With retractors medially and laterally, I used a small oscillating saw to make a cut perpendicular to the shaft of the fifth metacarpal. A secondary cut was then made at an angle for closing wedge osteotomy. This was noted to be complete as the distal fragment was mobile. I then reduced the distal fragment out of its palmar translation and out of its flexion and secured it with a K wire. Fluoroscopy showed that we had remove the flexion deformity of the fifth metacarpal. There is also some mild rotatory deformity of the finger. This was really challenging to appreciate in person during the surgery. From multiple viewpoints it appeared that we had corrected it. I wanted to be sure that I did not overcorrect it such that it externally rotated with flexion. The nail tip was pointing toward the scaphoid tubercle at all positions using tenodesis effect evaluate. While it did right against the ring finger it did not overlap or underlapped. It appeared appropriate and gross examination of the bone and therefore this was kept in position. Once again x-ray was used to confirm appropriate positioning of the fracture fragment. It also demonstrated that I had slightly undercorrected my osteotomy with a gap palmarly. However, I do not want remove more bone for the sake of shortening the metacarpal and utilized the bone from the osteotomy to pack into this palmar gap. This was done using a dental pick and a Brice elevator. I then placed a 1.5 mm metacarpal neck fracture plate onto the dorsal ulnar surface of the metacarpal. This was positioned and confirmed on x-ray. I placed a single nonlocking 1.5 millimeter screws in the shaft and then secondly inserted 2 locking screws into the head of the fifth metacarpal. These were checked on x-ray to make sure they were not too long. I then proceeded with 2 additional screws into the metacarpal head. These were both 1.5 mm locking screws. Once again, x-ray was used to confirm that the screws were not too long and appropriately positioned. I then placed 2 additional 1.5 mm nonlocking screws into the shaft of the fifth metacarpal with excellent purchase. The K wire was removed and the metacarpal head was stable. Passively I was able to bring the finger all the way down in the palm. With the tenodesis effect there is no notable rotatory deformity. The wound was thoroughly irrigated. The subcutaneous tissues and deep tissues were injected with a mixture of 1% lidocaine with epinephrine. Using a 2-0 Vicryl I closed the periosteum overlying the plate. The majority plate was closed the periosteum except for a very small portion over the more distal aspect. The extensor tendon was checked to make sure it was free without any sign of impingement on the plate or tethering from suture. The deep tissues were then closed with a 3-0 Vicryl and the skin was closed with a running 4-0 Monocryl. The wound was reinforced with skin glue. Once this had dried abundant padding was placed over the ulnar border of the hand and wrapped with web roll. A ulnar-based volar resting splint was applied ensuring that the fingers were placed into an intrinsic plus position. The tourniquet was deflated and blood flow return to all fingers with capillary for less than 2 seconds. Leonid was returned to the PACU in stable condition. There is no notable complications. He will return to the facility upon discharge today.
== END 2021-03-08 13:50 | disposition home or self-care (01) ==
PROVIDERS: PCP General Practice; Visit Provider Student in an Organized Health Care Education/Training Program
PROC: (CPT 26615; principal; 2021-03-08 11:00)
DX: S62.336P Displaced fracture of neck of fifth metacarpal bone, right hand, subsequent encounter for fracture with malunion (principal); F43.21 Adjustment disorder with depressed mood; F43.10 Post-traumatic stress disorder, unspecified; K59.00 Constipation, unspecified; F11.10 Opioid abuse, uncomplicated
CPT/HCPCS: 26615; 73120; J0131; J0690; J1100; J1885; J2001; J2250; J2405; J2704

== ENCOUNTER 2021-03-20 16:31 | Outpatient (CLI) | payer OTHER, SELFPAY ==
--- NOTE | 2021-03-20 14:00 | DI.RAD_ITS ---
Exam(s) XR HAND RT COMPLETE EXAM: XR HAND RT COMPLETE INDICATION: ORIF R hand. COMPARISON: RF XR HAND RT LIMITED from 03/08/2021 CR XR HAND RT COMPLETE from 03/08/2021 RF XR HAND RT LIMITED from 03/08/2021 CR XR HAND RT COMPLETE from 03/08/2021 TECHNIQUE: 2D digital imaging was performed. FINDINGS: Has been no change in hardware or fracture alignment. There has been some healing at the 5th metacar pal osteotomy. The 4th metacarpal fracture appears nearly completely healed. DATA REPOSITORY: RADIATION DOSE DELIVERED:
== END 2021-03-20 16:32 | disposition home or self-care (01) ==
LOC: DIORS 16:32
PROVIDERS: PCP Family Medicine; Referring Provider Family Medicine; Visit Provider Physician Assistant
DX: S62.304D Unspecified fracture of fourth metacarpal bone, right hand, subsequent encounter for fracture with routine healing (principal); S62.306P Unspecified fracture of fifth metacarpal bone, right hand, subsequent encounter for fracture with malunion; X58.XXXD Exposure to other specified factors, subsequent encounter
CPT/HCPCS: 73130

== ENCOUNTER 2021-04-17 13:04 | Outpatient (CLI) | payer OTHER, SELFPAY ==
--- NOTE | 2021-04-17 11:00 | DI.RAD_ITS ---
Exam(s) XR HAND RT COMPLETE EXAM: XR HAND RT COMPLETE CLINICAL HISTORY: f/u R 5th MC nonunion ORIF. TECHNIQUE: 2D digital imaging was performed. COMPARISON: CR XR HAND RT COMPLETE from 03/20/2021 FINDINGS: Again noted is dorsal fixation plate across the fracture at the neck of the 5th metacarpal, secured b y multiple screws. Fracture line is still evident. No radiographic evidence of osteomyelitis or loo sening. There is a healed fracture site at the midshaft of the adjacent 4th metacarpal noted. IMPRESSION: DATA REPOSITORY: RADIATION DOSE DELIVERED:
== END 2021-04-17 13:05 | disposition home or self-care (01) ==
LOC: DIORS 13:05
PROVIDERS: PCP Family Medicine; Referring Provider Family Medicine; Visit Provider Student in an Organized Health Care Education/Training Program
DX: S62.336D Displaced fracture of neck of fifth metacarpal bone, right hand, subsequent encounter for fracture with routine healing (principal); S62.394D Other fracture of fourth metacarpal bone, right hand, subsequent encounter for fracture with routine healing; W22.09XD Striking against other stationary object, subsequent encounter
CPT/HCPCS: 73130

== ENCOUNTER 2021-06-08 09:33 | Outpatient (CLI) | payer OTHER, SELFPAY ==
--- NOTE | 2021-06-08 08:00 | DI.RAD_ITS ---
Exam(s) XR HAND RT COMPLETE EXAM: XR HAND RT COMPLETE INDICATION: fifth metacarpal fracture. COMPARISON: CR XR HAND RT COMPLETE from 04/17/2021 TECHNIQUE: 2D digital imaging was performed. FINDINGS: There has been no change in the alignment of the 5th meta carpal fracture or fixation plate. Continu ed healing of the 4th metacarpal fracture. DATA REPOSITORY: RADIATION DOSE DELIVERED:
== END 2021-06-08 09:34 | disposition home or self-care (01) ==
LOC: DIORS 09:34
PROVIDERS: PCP Family Medicine; Referring Provider Family Medicine; Visit Provider Physician Assistant
DX: S62.336D Displaced fracture of neck of fifth metacarpal bone, right hand, subsequent encounter for fracture with routine healing (principal); S62.394D Other fracture of fourth metacarpal bone, right hand, subsequent encounter for fracture with routine healing; W22.09XD Striking against other stationary object, subsequent encounter
CPT/HCPCS: 73130

== ENCOUNTER 2022-11-09 10:54 | Emergency (ER) | payer MEDICAID, SELFPAY ==
[2022-11-09] VITALS (11 sets, daily range): BP systolic 107–112; BP diastolic 68–75; PULSE 70–97; RESP 12–22; TEMP 36.6; O2SAT 100
--- NOTE | 2022-11-09 11:18 | ED.GENADUL_ITS ---
Discharge Plan Disposition Patient Disposition: [facility] Discharge Details Clinical Impression: Opiate overdose Primary Care Provider: Darshan Vazquez ED Provider: Prabhu Rosario Home Meds and New Rx's Prescriptions: No Action hydrocortisone [Cortisone (hydrocortisone)] 1 % cream 1 applic topical DAILY PRN senna 8.6 mg capsule 8.6 mg PO DAILY divalproex 500 mg tablet,delayed release (DR/EC) 250 mg PO DAILY mirtazapine 30 mg tablet 45 mg PO DAILY sertraline 100 mg tablet 50 mg PO DAILY buprenorphine HCl 2 mg Tablet, Sublingual 4 mg SUBLINGUAL DAILY acetaminophen 500 mg tablet 1,000 mg PO Q8H PRN (Reason: pain) Qty: 90 3RF ibuprofen 600 mg tablet 600 mg PO TID PRN (Reason: pain) Qty: 90 3RF Discharge Instructions Additional Instructions: You are being discharged to the care of the state police since they have a warrant for your arrest Medical Decision Making 27-year-old with what appears to be an opiate overdose prehospital . Given Narcan in route by EMS. Arrives awake and alert. He will be observed to make sure he does not need to be remedicated with Narcan. Patient did well in the ED . No airway or breathing issues. We were informed by the [facility] that the patient had a warrant for his arrest. He was arrested after his discharge HPI General Date/Time Provider Initiated Documentation: 11/09/22 11:18 . HPI Narrative: 27-year-old presents to the emergency for evaluation status post slight episode of CPR secondary to fentanyl overdose and fentanyl administration in the field. CPR was started by his group and was found to be in agonal respirations. Upon EMS arrival CPR was in progress. Administered 1.5 mg Narcan IM. Patient responded well. He arrives to the emergency department, awake and alert cooperative. Related Data Home Medications Medication Instructions Recorded Confirmed hydrocortisone 1 % topical cream 1 applic topical DAILY PRN 01/10/21 06/08/21 (Cortisone (hydrocortisone)) sennosides 8.6 mg capsule (senna) 8.6 mg PO DAILY 01/10/21 06/08/21 buprenorphine HCl 2 mg sublingual 4 mg sublingual DAILY 03/03/21 06/08/21 tablet acetaminophen 500 mg tablet 1,000 mg PO Q8H PRN pain #90 tabs 03/08/21 06/08/21 ibuprofen 600 mg tablet 600 mg PO TID PRN pain #90 tabs 03/08/21 06/08/21 divalproex 500 mg tablet,delayed 250 mg PO DAILY 05/23/21 06/08/21 release mirtazapine 30 mg tablet 45 mg PO DAILY 05/23/21 06/08/21 sertraline 100 mg tablet 50 mg PO DAILY 05/23/21 06/08/21 Previous Rx's Medication Instructions Recorded acetaminophen 500 mg tablet 1,000 mg PO Q8H PRN pain #90 tabs 03/08/21 ibuprofen 600 mg tablet 600 mg PO TID PRN pain #90 tabs 03/08/21 Allergies Allergy/AdvReac Type Severity Reaction Status Date / Time No Known Allergies Allergy Verified 06/08/21 07:58 General Stated Complaint: OD/Poison TANNER: 3 Review of Systems Narrative: 10 point review of systems is negative as otherwise specified in the HPI PFSH All Active Problems (Updated 11/09/22 @ 12:35 by Prabhu Rosario MD) Opiate overdose (Acute) Fracture of fifth metacarpal bone of right hand (Acute) S/P ORIF: 03/08/2021 Fracture of fourth metacarpal bone of right hand (Acute) Medical History (Updated 11/09/22 @ 12:35 by Prabhu Rosario MD) Adjustment disorder Bipolar II disorder Chronic lower back pain Constipation Major depressive disorder Opiate abuse, episodic PTSD (post-traumatic stress disorder) Surgical History (Updated 06/01/21 @ 09:20 by Laisha Shen RN) S/P ORIF (open reduction internal fixation) fracture (~03/08/21) Right hand Social History Smoking/Tobacco Use Status: Current every day Tobacco Type: cigarettes and smokeless tobacco Smoking risk assessment performed?: Yes Alcohol Intake: current Drug use: Daily Substance use type: crack/cocaine, amphetamines, hallucinogens and prescription drug Details: smoked fent this AM Current gender identity: male Exam Narrative Exam Narrative: Awake alert [place] x3, acute distress PERRL EOMI MMM anicteric well-hydrated Supple neck Chest clear to auscultation bilaterally Regular rhythm rate no murmurs Moving all 4 extremities. Neuro 212 grossly intact Skin no rashes Psych flat mood and affect Course Vital Signs Vital signs: Vital Signs Temperature 36.6 C 11/09/22 10:54 Pulse 97 H 11/09/22 10:54 Respiratory Rate 14 11/09/22 10:54 Blood Pressure 107/68 11/09/22 10:54 Pulse Oximetry 100 11/09/22 10:54 Temperature 36.6 C 11/09/22 10:54 Temperature Source Temporal Artery Scan 11/09/22 10:54 Pulse 97 H 11/09/22 10:54 Respiratory Rate 14 11/09/22 10:54 Blood Pressure 107/68 11/09/22 10:54 Blood Pressure Position Supine 11/09/22 10:54 Pulse Oximetry 100 11/09/22 10:54 Oxygen Delivery Method Room Air 11/09/22 10:54 Oxygen Flow Rate 0 11/09/22 10:54 Pain Level 7 11/09/22 10:54
--- NOTE | 2022-11-09 11:40 | NUR.NOTE ---
Nursing Note: this RN gave patient and patient's girlfriend a harm reduction bag to take home and education on how to use the products in the bag.
== END 2022-11-09 13:05 ==
LOC: ER 13:05
PROVIDERS: Emergency Provider Emergency Medicine; PCP Family Medicine
DX: T40.411A Poisoning by fentanyl or fentanyl analogs, accidental (unintentional), initial encounter (principal)
CPT/HCPCS: 99283

== ENCOUNTER 2023-02-11 03:53 | Emergency (ER) | payer MEDICAID, SELFPAY ==
[2023-02-11 03:57] VITALS: BP 125/100; PULSE 100; RESP 16; TEMP 36.8; O2SAT 96
[2023-02-11] MEDS: Lidocaine 2% Multi-Dose 50 ML VIAL (04:16)
--- NOTE | 2023-02-11 04:25 | NUR.NOTE ---
Lacerations cleansed with Hibiclense prior to closure, LUCRETIAJ
--- NOTE | 2023-02-11 04:36 | ED.GENADUL_ITS ---
Discharge Plan Disposition Patient Disposition: Home Discharge Details Clinical Impression: Laceration of left little finger, Laceration of left ring finger Primary Care Provider: Darshan Vazquez ED Provider: Navi Wesley Home Meds and New Rx's Prescriptions: New cephalexin 500 mg capsule 500 mg PO QID 4 Days Qty: 16 0RF No Action hydrocortisone [Cortisone (hydrocortisone)] 1 % cream 1 applic topical DAILY PRN Patient Comments: pt stated not taking senna 8.6 mg capsule 8.6 mg PO DAILY Patient Comments: pt stated not taking divalproex 500 mg tablet,delayed release (DR/EC) 250 mg PO DAILY Patient Comments: pt stated not taking mirtazapine 30 mg tablet 45 mg PO DAILY Patient Comments: pt stated not taking sertraline 100 mg tablet 50 mg PO DAILY Patient Comments: pt stated not taking buprenorphine HCl 2 mg Tablet, Sublingual 4 mg SUBLINGUAL DAILY Patient Comments: pt stated not taking acetaminophen 500 mg tablet 1,000 mg PO Q8H PRN (Reason: pain) Qty: 90 3RF ibuprofen 600 mg tablet 600 mg PO TID PRN (Reason: pain) Qty: 90 3RF Discharge Instructions Instructions: Care For Your Stitches (ED), Finger Laceration (ED) Additional Instructions: At this time I suspect there was a small amount of damage to the but you still do have intact tendon function. It is important to let your tendons heal. Please keep the splint on at all times. Please keep the area clean and dry. Take Tylenol or Motrin as needed for pain. We have placed a referral with the publishing specialist for follow-up to make sure your tendons are healing well. Please keep the area clean and dry. Monitor closely for any redness, drainage or discharge. For nonabsorbable sutures, please return in 7 to 10 days to have the wound reassessed and the sutures removed. If you come back to the emergency department here it will be free of charge for the suture removal. For long-term scar cosmesis, please make sure to avoid any sun to the area for the next year. Apply moisturizer or vitamin E to the area twice daily for the next 12 months for the best chance of wound/scar medication. Please take a daily multivitamin as well as this can help in wound healing. If you notice any worsening of your symptoms, or any new symptoms such as vomiting, diarrhea, fever, chills, shortness of breath, chest pain, numbness, weakness, or fainting , please return immediately to the emergency department for reevaluation. Please follow up with your primary care provider as soon as possible for reassessment and reevaluation. As always, it was a pleasure participating in your medical care today. Referrals: Kg Campos MD [ [facility] STAFF PHYSICIAN] - Darshan Vazquez [Primary Care Provider] - Conrad Cardenas MD [ [facility] STAFF PHYSICIAN] - Medical Decision Making 27-year-old [id number] male presents for evaluation of laceration. Patient was working on [employer] for a work project at 3 AM. The metal slipped and cut his fourth and fifth digit on the left hand on the palmar aspect. He immediately covered the area and came to the ER for assessment. Last tetanus shot was in 2018. He denies any numbness or tingling. Pain is made worse with movement. He denies significant weakness. No other complaints at this time. Physical exam demonstrates 2 lacerations, each a centimeter in width, present on the palmar surface of the fourth and fifth digits on the left hand. Fourth digit laceration is just proximal to the PIP joint, and fifth digit laceration is just distal to the MCP joint. Initially patient had notable difficulty flexing his tendons, but this seemed to be due to pain. Neurovascular exam was normal. Both fingers were anesthetized, and then after this the patient was able to demonstrate good flexion for the flexors and the extensors especially with joint isolation at the PIP and DIP joints. There did not appear to be any lateral laxity in the joints either. No evidence of foreign body on exploration of the wound. Bedside ultrasound was performed and demonstrates what appears to be some questionable mild superficial tendon damage which I was not able to directly visualize on inspection. The area was sutured for each laceration with 8 sutures total, 4 per finger. Patient demonstrated good flexion after suturing. Concern for potential mild tendon injury without tendon rupture/complete laceration. We will place the patient in a flexion splint, and recommend avoiding work or use with the splint. Unfortunately the patient has expressed how he will be going directly back to work with the splint, and I did give my recommendations for avoiding how to make things worse. Patient is otherwise stable and appropriate for discharge. He will be given a short course of Keflex antibiotic to prevent infection. Tetanus is up-to-date. We will place referral for orthopedics for follow-up. I have extensively reviewed the treatment plan and discharge instructions with the patient and their family. I have addressed all patient concerns at this time. The patient and family was made aware of what symptoms to monitor for that would warrant a return to the emergency department. Discussed the plan with the patient and family, they d emonstrate verbal understanding and agreement with our assessment and plan at this time. The documentation in this chart was dictated using [employer] dictation software. Please excuse any dictation errors. HPI General Date/Time Provider Initiated Documentation: 02/11/23 03:54 . HPI Narrative: 27-year-old [id number] male presents for evaluation of laceration. Patient was working on [employer] for a work project at 3 AM. The metal slipped and cut his fourth and fifth digit on the left hand on the palmar aspect. He immediately covered the area and came to the ER for assessment. Last tetanus shot was in 2018. He denies any numbness or tingling. Pain is made worse with movement. He denies significant weakness. No other complaints at this time. Related Data Home Medications Medication Instructions Recorded Confirmed hydrocortisone 1 % topical cream 1 applic topical DAILY PRN 01/10/21 06/08/21 (Cortisone (hydrocortisone)) sennosides 8.6 mg capsule (senna) 8.6 mg PO DAILY 01/10/21 06/08/21 buprenorphine HCl 2 mg sublingual 4 mg sublingual DAILY 03/03/21 06/08/21 tablet acetaminophen 500 mg tablet 1,000 mg PO Q8H PRN pain #90 tabs 03/08/21 02/11/23 ibuprofen 600 mg tablet 600 mg PO TID PRN pain #90 tabs 03/08/21 02/11/23 divalproex 500 mg tablet,delayed 250 mg PO DAILY 05/23/21 06/08/21 release mirtazapine 30 mg tablet 45 mg PO DAILY 05/23/21 06/08/21 sertraline 100 mg tablet 50 mg PO DAILY 05/23/21 06/08/21 cephalexin 500 mg capsule 500 mg PO QID 4 days #16 caps 02/11/23 Previous Rx's Medication Instructions Recorded acetaminophen 500 mg tablet 1,000 mg PO Q8H PRN pain #90 tabs 03/08/21 ibuprofen 600 mg tablet 600 mg PO TID PRN pain #90 tabs 03/08/21 cephalexin 500 mg capsule 500 mg PO QID 4 days #16 caps 02/11/23 Allergies Allergy/AdvReac Type Severity Reaction Status Date / Time No Known Allergies Allergy Verified 02/11/23 04:09 General Stated Complaint: Laceration TANNER: 3 Review of Systems All systems reviewed & are unremarkable except as noted in HPI and below PFSH All Active Problems Laceration of left little finger (Acute) Laceration of left ring finger (Acute) Fracture of fifth metacarpal bone of right hand (Acute) S/P ORIF: 03/08/2021 Fracture of fourth metacarpal bone of right hand (Acute) Medical History Adjustment disorder Bipolar II disorder Chronic lower back pain Constipation Major depressive disorder Opiate abuse, episodic PTSD (post-traumatic stress disorder) Surgical History S/P ORIF (open reduction internal fixation) fracture (~03/08/21) Right hand Social History Smoking/Tobacco Use Status: Current every day Tobacco Type: cigarettes and smokeless tobacco Smoking risk assessment performed?: Yes Alcohol Intake: current Drug use: Daily Substance use type: crack/cocaine, amphetamines, hallucinogens and prescription drug Details: smoked fent this AM Current gender identity: male Do you feel safe at home: Yes Do you feel safe in your relationship?: Yes Exam Narrative Exam Narrative: 1.Const: Well-nourished, Well-developed, appearing stated age 2.Eyes: PERRL, no conjunctival injection, and symmetrical lids. 3.ENT: Atraumatic external nose and ears. Moist MM. Neck: Symmetric, trachea midline, No thyromegaly. 4.CVS: +S1/S2, No murmurs or gallops. Peripheral pulses 2+ and equal in all extremities. Brisk capillary refill in all extremities. 5.RESP: Unlabored respiratory effort. Clear to auscultation bilaterally. No wheezes rales or rhonchi 6.GI: Soft, Nontender/Nondistended, No hepatosplenomegaly. No guarding or rebound. 7.MSK: Left hand: Left hand is unremarkable aside for the fourth and fifth digit. Fourth digit: A 1 cm horizontal laceration is noted just proximal to the PIP joint on the edan side. Bedside ultrasound shows small bit of damage to the flexor tendon, however examination and isolation of each joint demonstrates ability to flex well with normal strength. Normal extension. No weakness with PIP or DIP joint. good capillary refill distally. Normal sensation distally. Intact two-point discrimination to the distal tip. Fifth digit: A 1 cm horizontal laceration is noted just distal to the MCP joint on the dean side. Bedside ultrasound shows small bit of damage to the flexor tendon, however examination and isolation of each joint demonstrates ability to flex well with normal strength. Normal extension. No weakness with PIP or DIP joint. good capillary refill distally. Normal sensation distally. Intact two- point discrimination to the distal tip. 8.Skin: Please see musculoskeletal 9.Neuro: skull splitter II-XII grossly intact. Sensation grossly intact, no focal neurologic deficits. 10.Psych: (AAO) x3. Appropriate mood and affect Course Vital Signs Vital signs: Vital Signs Temperature 36.8 C 02/11/23 03:57 Pulse 100 H 02/11/23 03:57 Respiratory Rate 16 02/11/23 03:57 Blood Pressure 125/100 H 02/11/23 03:57 Pulse Oximetry 96 02/11/23 03:57 Temperature 36.8 C 02/11/23 03:57 Temperature Source Temporal Artery Scan 02/11/23 03:57 Pulse 100 H 02/11/23 03:57 Respiratory Rate 16 02/11/23 03:57 Respiratory Effort Normal, Non-Labored 02/11/23 04:14 Blood Pressure 125/100 H 02/11/23 03:57 Blood Pressure Position Sitting 02/11/23 03:57 Pulse Oximetry 96 02/11/23 03:57 Oxygen Delivery Method Room Air 02/11/23 03:57 Oxygen Flow Rate 0 02/11/23 03:57 Pain Level 7 02/11/23 03:57 Procedures Laceration Laceration 1: Site: hand Side (If applicable): left Size (cm): 1 Description: linear Depth: simple, single layer Local Anesthetic: Lidocaine 1% Amount of anesthesia used (mL): 5 Pre-repair: wound explored, irrigated extensively and deep structures intact Skin layer closed with: nylon Size (cm): 3-0 Number of sutures: 4 Technique: simple, interrupted Laceration 2: Site: hand Side (If applicable): left Size (cm): 1 Description: linear Depth: simple, single layer Local Anesthetic: Lidocaine 2% Amount of anesthesia used (mL): 5 Pre-repair: wound explored, irrigated extensively and deep structures intact Skin layer closed with: nylon Size (cm): 3-0 Number of sutures: 4 Technique: simple, interrupted POCUS Exam (ED) Limited Soft Tissue Exam DATE OF EXAM: 02/11/23 TIME OF EXAM: 04:54 PROVIDER THAT PERFORMED THE STUDY: aNvi Wesley IS THIS A REPEAT EXAM DURING THIS ENCOUNTER: No LOCATION OF EXAM: Upper extremity/left (Laceration) REASON FOR EXAM: Other (Laceration) indication: Laceration VISUALIZED STRUCTURES: Skin and Other (Tendon) structure: Flexor surface of the fourth and fifth digit PERTINENT FINDINGS/IMPRESSION: Other (Questionable mild tendon disruption for the flexor tendons from the superficial component. No evidence of total tendon rupture.) impression: Questionable mild superficial tendon damage without total tendon rupture . Exam Complete
[2023-02-11] MEDS: Cephalexin 500 MG CAP, 4 CAPS/BTL PO (04:45)
[2023-02-11 05:01] VITALS: BP 118/88; PULSE 90; RESP 16; O2SAT 98
== END 2023-02-11 05:02 | disposition home or self-care (01) ==
PROVIDERS: Emergency Provider Student in an Organized Health Care Education/Training Program; PCP Family Medicine
DX: S61.215A Laceration without foreign body of left ring finger without damage to nail, initial encounter (principal); S61.217A Laceration without foreign body of left little finger without damage to nail, initial encounter; W26.8XXA Contact with other sharp object(s), not elsewhere classified, initial encounter
CPT/HCPCS: 12001; 76882; 99284

== ENCOUNTER 2023-02-27 14:34 | Outpatient (CLI) | payer OTHER, SELFPAY ==
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
== END 2023-02-27 14:35 | disposition home or self-care (01) ==
LOC: DIORS 14:34
PROVIDERS: PCP Family Medicine; Visit Provider Physician Assistant
DX: S61.215A Laceration without foreign body of left ring finger without damage to nail, initial encounter (principal); S62.015A Nondisplaced fracture of distal pole of navicular [scaphoid] bone of left wrist, initial encounter for closed fracture; X58.XXXA Exposure to other specified factors, initial encounter
CPT/HCPCS: 73130

== ENCOUNTER → 2023-03-08 01:04 | Outpatient (CLI) | payer OTHER, SELFPAY ==
--- NOTE | 2023-03-08 08:00 | DI.MRI_ITS ---
Exam(s) MR UPPER EXTREMITY LT WO EXAM: MR UPPER EXTREMITY LT WO CLINICAL HISTORY: ? flexor tendon injury,laceation,s64.495a,s66.822a. TECHNIQUE: Multiplanar multisequence MRI was performed. COMPARISON: Plain films 27 February 2023 FINDINGS: BONES: There is no fracture or contusion pattern. JOINTS: The radiocarpal joint is unremarkable. The carpal joints are unremarkable. TENDONS: Flexors: increased fluid around the flexor tendons of the 4th finger. Thinning of the flexor tendons from the level of the distal 4th metacarpal through the level of the distal portion of the proximal phalanx, over a roughly 2 cm length. Worst disruption seen at the level of the proximal interphalange al joint. No full-thickness tear. There is also question of some increased edema within the flexor tendons of the 5th finger at the lev el of the middle phalanx. This area is not as well evaluated due to some motion artifact on the sagit lkaia sequence. . Extensors: Unremarkable. MUSCLES: Unremarkable. MEDIAN NERVE: Unremarkable on this noncontrast examination. SOFT TISSUES: Edema in soft tissues of 4th finger greatest ventrally. Mild edema seen ventrally at 5t h finger greatest at the level of middle phalanx. No localized fluid collection. IMPRESSION: Severe partial tear of the flexor tendons of the 4th finger over an approximately 2 centimeter length greatest at the level of the proximal interphalangeal joint. Probable partial tear involving the fle xor tendons of the 5th finger at the level of the middle phalanx. DATA REPOSITORY:
== END ==
PROVIDERS: PCP Family Medicine; Visit Provider Student in an Organized Health Care Education/Training Program
DX: S64.495A Injury of digital nerve of left ring finger, initial encounter (principal); S66.822A Laceration of other specified muscles, fascia and tendons at wrist and hand level, left hand, initial encounter; X58.XXXA Exposure to other specified factors, initial encounter
CPT/HCPCS: 73218

== ENCOUNTER 2023-08-24 14:15 | Emergency (ER) | payer MEDICAID, SELFPAY ==
[2023-08-24] VITALS (24 sets, daily range): BP systolic 132–159; BP diastolic 75–100; PULSE 77–97; RESP 17; TEMP 36.8; O2SAT 97–100
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
[2023-08-24 14:22] LABS: Absolute Basophil Count 0.07 10^3/uL (0.0-0.2); Absolute Eosinophil Count 0.15 10^3/uL (0.0-0.7); Absolute Lymphocyte Count 1.46 10^3/uL (1.2-3.4); Absolute Monocyte Count 0.93 10^3/uL (0.1-0.8); Basophils % 0.5; Eosinophils % 1.1; HCT 47.4 % (40.0-50.0); HGB 15.9 g/dL (13.5-17.5); Immature Grans % 1.5; MCH 28.3 pg (27.0-33.0); MCHC 33.5 % (32.0-36.0); MCV 85 fL (80-95); MPV 9.6 fL (8.0-11.0); Neutrophils % 78.9; Platelet Count 278 10^3/uL (130-400); RBC 5.61 10^6/uL (4.36-5.78); RDW 12.5 % (11.8-14.1); RDW-SD 38.8 fL; WBC 13.31 10^3/uL (4.4-10.8)
[2023-08-24] MEDS: Normal Saline - Diluent 50 ML VIAL IJ (14:26)
[2023-08-24] MEDS: Omnipaque 350 MG/ML 100 ML BTL IJ (14:26)
[2023-08-24] MEDS: Normal Saline Flush 10 ML SYR IVP (14:28)
[2023-08-24 14:37] LABS: Creatine Kinase 374 U/L (39-308)
[2023-08-24 14:41] LABS: ALT 87 U/L (16-63); AST 97 U/L (15-37); Albumin 4.1 g/dL (3.4-5.0); Alkaline Phosphatase 85 U/L (46-116); Anion Gap 10.9 mmol/L (3-11); BUN 9 mg/dL (7-18); Bilirubin, Total 0.9 mg/dL (0.2-1.0); CO2 27.1 mmol/L (21.0-32.0); Calcium 9.6 mg/dL (8.5-10.1); Chloride 104 mmol/L (98-107); Estimated GFR 104.48 (mL/min/1.73m2); Glucose 115 mg/dL (74-106); Lipase 39 U/L (16-77); Potassium 4.1 mmol/L (3.5-5.1); Sodium 142 mmol/L (136-145); Total Protein 7.9 g/dL (6.4-8.2)
[2023-08-24] MEDS: Normal Saline 1,000 ML 1000 ML IV (14:41)
[2023-08-24 14:42] LABS: ETHANOL BLOOD < 3.0 mg/dL (<10)
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
[2023-08-24 17:21] LABS: Bilirubin Negative (Negative); Blood Moderate (Negative); Clarity Clear (Clear); Glucose Negative (Negative); Ketones 15 mg/dL (Negative); Leukocyte Esterase Negative (Negative); Nitrite Negative (Negative); Specific Gravity 1.015 (1.005-1.025); Urobilinogen 0.2 mg/dL (Up to 0.2)
[2023-08-24 17:27] LABS: Bacteria Negative HPF (Negative); C & S Indicated? No; Crystals Negative HPF (Negative); Epithelial Cells Negative HPF (Negative); Mucus Negative (Negative); WBC 0-2 HPF (0-5)
[2023-08-24 17:33] LABS: *AMPHETAMINES SCREEN URINE Negative (Negative); *BARBITURATES SCREEN URINE Negative (Negative); *BENZODIAZEPINES SCREEN URINE Negative (Negative); Cannabinoids THC Negative (Negative); Cocaine Screen,Urine Positive (Negative); METHADONE URINE SCREEN Negative (Negative); OPIATES URINE SCREEN Negative (Negative); Tricyclic Antidepressants Negative (Negative)
== END 2023-08-24 17:07 | disposition home or self-care (01) ==
PROVIDERS: Emergency Provider Student in an Organized Health Care Education/Training Program; PCP Family Medicine
DX: S06.0X0A Concussion without loss of consciousness, initial encounter (principal); S60.511A Abrasion of right hand, initial encounter; S30.811A Abrasion of abdominal wall, initial encounter; S40.211A Abrasion of right shoulder, initial encounter; S00.03XA Contusion of scalp, initial encounter; F17.210 Nicotine dependence, cigarettes, uncomplicated; F17.290 Nicotine dependence, other tobacco product, uncomplicated; V48.6XXA Car passenger injured in noncollision transport accident in traffic accident, initial encounter
CPT/HCPCS: 74177; 80053; 80307; 82550; 83690; 96360; 99285; 70450; 70486; 71260; 72125; 72128; 72131; 73130; 80320; 81003; 81015; 85025; 99284; J3490

== ENCOUNTER 2024-04-01 11:36 | Emergency (ER) | payer OTHER, SELFPAY ==
[2024-04-01 11:41] VITALS: BP 120/75; PULSE 75; RESP 18; TEMP 36.4; O2SAT 98
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
[2024-04-01] MEDS: Ibuprofen 600 MG TAB PO (14:04)
[2024-04-01] MEDS: Acetaminophen 500 MG TAB 1000 MG PO (14:04)
[2024-04-01 14:05] VITALS: BP 118/74; PULSE 82; RESP 16; TEMP 36.6; O2SAT 100
== END 2024-04-01 14:06 | disposition home or self-care (01) ==
PROVIDERS: Emergency Provider Physician Assistant; PCP Family Medicine
DX: S62.324A Displaced fracture of shaft of fourth metacarpal bone, right hand, initial encounter for closed fracture; S62.306A Unspecified fracture of fifth metacarpal bone, right hand, initial encounter for closed fracture; Y04.0XXA Assault by unarmed brawl or fight, initial encounter; Y92.149 Unspecified place in prison as the place of occurrence of the external cause
CPT/HCPCS: 29125; 99283; 73130; 99284

== ENCOUNTER 2024-04-15 11:40 | Outpatient (CLI) | payer OTHER, SELFPAY ==
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
== END 2024-04-15 11:41 ==
LOC: DIORS 04-16 07:54
PROVIDERS: PCP Family Medicine; Visit Provider Student in an Organized Health Care Education/Training Program
DX: S62.336D Displaced fracture of neck of fifth metacarpal bone, right hand, subsequent encounter for fracture with routine healing (principal); X58.XXXD Exposure to other specified factors, subsequent encounter
CPT/HCPCS: 73130